=== PATIENT | female | born 1995 | race African-American/Black ===

== ENCOUNTER 2024-05-26 17:29 | Emergency (ER) | payer OTHER ==
[~2024-05-26] VITALS: Ht 170.2 cm; Wt 95.0 kg
[~2024-05-26 17:29] MED LIST: FERR-43 PO; FERR1TAB51 PO; FOLI-43 PO; PREN-88 PO; TYLENOL ES
[2024-05-26 17:31] VITALS: O2SAT 98
[2024-05-26] MEDS: TETANUS, DIPHTHERIA, PERTUSSIS VAC/PF 0.5ML (>10YR OLD) IM ONE (18:50)
[2024-05-26] MEDS: BACITRACIN ZINC OINT UDPKT TOP ONE (18:52)
[2024-05-26] MEDS: LIDOCAINE HCL/PF 1% 10 MG/ML 5ML VIAL INFIL ONE (18:52)
[2024-05-26 19:50] VITALS: BP 140/77; PULSE 90; RESP 16; TEMP 98.2
== END 2024-05-26 19:50 | disposition home or self-care (01) ==
LOC: ER 17:29
DX: S81.811A Laceration without foreign body, right lower leg, initial encounter (principal); F12.90 Cannabis use, unspecified, uncomplicated; Y08.89XA Assault by other specified means, initial encounter; Y93.89 Activity, other specified; Y92.89 Other specified places as the place of occurrence of the external cause; Y99.8 Other external cause status
CPT/HCPCS: 90715; 12002; 99283; J3490; Z7610 ×2

== ENCOUNTER 2025-09-06 02:39 | Emergency (ER) | payer MEDICAID ==
[~2025-09-06] VITALS: Ht 165.1 cm; Wt 100.0 kg
[2025-09-06 02:50] VITALS: O2SAT 99
[2025-09-06 02:56] VITALS: BP 151/109; PULSE 75; RESP 16; TEMP 36.8; O2SAT 98
[2025-09-06] MEDS: DIPHENHYDRAMINE 25MG CAPSULE PO ONE (03:33)
[2025-09-06] MEDS: DEXAMETHASONE 10 MG/ML VIAL PO ONE (03:33)
[2025-09-06] MEDS ORDERED: NAPH15DR67 OP (04:23)
== END 2025-09-06 05:30 | disposition home or self-care (01) ==
LOC: ER 02:39
DX: H10.10 Acute atopic conjunctivitis, unspecified eye (principal); Z91.010 Allergy to peanuts
CPT/HCPCS: 99283; Q0163; J1100; Z7610